=== PATIENT | female | born 1940 ===

== ENCOUNTER 2017-12-25 20:54 | Emergency (ER) | payer MEDICARE ==
[2017-12-25 22:30] VITALS: TEMP 98; O2SAT 100
[2017-12-25] MEDS ORDERED: Sodium Chloride 0.9% 1,000 ML IV STA (23:00)
--- NOTE | 2017-12-25 23:16 | ED PDOC ---
HPI: Back Time Seen by Provider: 12/25/17 22:35 Chief Complaint (Nursing): Back Pain Chief Complaint (Provider): Back Pain History Per: Patient History/Exam Limitations: no limitations Onset/Duration Of Symptoms: Hrs (x 6), Waxing/Waning, Intermittent Episodes, Sudden Onset Current Symptoms Are (Timing): Still Present Additional Complaint(s): Sania is a 77 y/o female who presents to the ED complaining of sudden onset left flank pain that started at 18:00 today. Patient describes the pain as constant, radiating to the left lower quadrant, with intermittent waxing and waning. Pain was not relieved by ibuprofen. She also admits to nausea with one episode of nonbilious, nonbloody vomit today. Patient has no hx of kidney stone. Last week she had an episode where she felt she had dysuria but it resolved spontaneously. She has chills but denies fever. PMD: Dr. South Past Medical History Reviewed: Historical Data, Nursing Documentation, Vital Signs Vital Signs: Last Vital Signs Temp 98.0 F 12/25/17 22:30 Pulse 84 12/25/17 22:30 Resp 16 12/25/17 22:30 BP 147/70 12/25/17 22:30 Pulse Ox 100 12/25/17 22:30 - Medical History PMH: No Chronic Diseases Denies: Kidney Stones - Surgical History Surgical History: Cholecystectomy - Family History Family History: States: No Known Family Hx - Social History Current smoker - smoking cessation education provided: No Alcohol: None - Home Medications Home Medications: Ambulatory Orders Medication Instructions Recorded Ciprofloxacin [Cipro] 1 tab PO BID #14 tab 12/26/17 Ibuprofen [Motrin Tab] 600 mg PO Q8 PRN #60 tab 12/26/17 Ondansetron ODT [Zofran ODT] 1 odt PO Q6 PRN #20 odt 12/26/17 Tamsulosin [Flomax] 0.4 mg PO DAILY #14 cap 12/26/17 traMADol [Ultram] 50 mg PO TID #15 tab 12/26/17 - Allergies Allergies/Adverse Reactions: Allergies Allergy/AdvReac Type Severity Reaction Status Date / Time No Known Allergies Allergy Verified 12/25/17 22:29 Review of Systems ROS Statement: Except As Marked, All Systems Reviewed And Found Negative Constitutional: Positive for: Chills. Negative for: Fever Gastrointestinal: Positive for: Nausea, Vomiting (1 episode). Negative for: Hematemesis Genitourinary Female: Positive for: Dysuria (resolved last week) Musculoskeletal: Positive for: Back Pain (left flank w/ radiation to LLQ) - Laboratory Results Result Diagrams: 12/25/17 23:27 12/25/17 23:27 - ECG O2 Sat by Pulse Oximetry: 100 (RA) Pulse Ox Interpretation: Normal Medical Decision Making Medical Decision Making: Time: 22:55 Initial Impression: Flank Pain; Dx include but not limited to: renal colic, pyelonephritis, back strain, less likely diverticulitis Initial Plan: --CT Abdomen & Pelvis --CMP --Urine Dip --CBC --Flomax --Toradol --Tylenol --Zofran --Blood Culture --Urine Culture --Urinalysis Time: 00:31 --Patient reports feeling better. CT shows 2mm kidney stone. High likelihood of passing w/o any surgical intervention --Stable for discharge home with urology followup Scribe Attestation: Documented by Ok Encarnacion, acting as a scribe for Dr. Roseline Contreras MD Provider Scribe Attestation: All medical record entries made by the Scribe were at my direction and personally dictated by me. I have reviewed the chart and agree that the record accurately reflects my personal performance of the history, physical exam, medical decision making, and the department course for this patient. I have also personally directed, reviewed, and agree with the discharge instructions and disposition. Disposition - Clinical Impression Clinical Impression: Kidney stone on left side - Patient ED Disposition Is Patient to be Admitted: No Counseled Patient/Family Regarding: Studies Performed, Diagnosis, Need For Followup - Disposition Referrals: Luis South MD [Staff Provider] - Erwin Escobar MD [Medical Doctor] - Disposition: Routine/Home Disposition Time: 00:31 Condition: IMPROVED Additional Instructions: CALL YOUR DOCTORS TOMORROW TO SETUP FOLLOW UP APPOINTMENT BY NEXT WEEK Prescriptions: Ciprofloxacin [Cipro] 1 tab PO BID #14 tab Ibuprofen [Motrin Tab] 600 mg PO Q8 PRN #60 tab PRN Reason: Pain, Moderate (4-7) Ondansetron ODT [Zofran ODT] 1 odt PO Q6 PRN #20 odt PRN Reason: Nausea/Vomiting Tamsulosin [Flomax] 0.4 mg PO DAILY #14 cap traMADol [Ultram] 50 mg PO TID #15 tab Instructions: Kidney Stones (ED) Forms: [employer] (Kyrgyz) Print Language: ARMENIAN
[2017-12-25 23:29] LABS: BASO % 0.3 % (0.0-2.0); HEMOGLOBIN 14.4 g/dL (12.0-16.0); LYMPH # 0.8 K/uL (1.0-4.3); LYMPH % 5.8 % (20.0-40.0); MEAN CELL VOLUME 87.9 fl (81.0-99.0); MEAN CORPUSCULAR HGB CONC 33.1 g/dL (33.0-37.0); MEAN PLATELET VOLUME 7.3 fl (7.2-11.7); MONO # 0.3 K/uL (0.0-0.8); MONO % 1.9 % (0.0-10.0); NEUT # 13.1 K/uL (1.8-7.0); PLATELET COUNT 222 K/uL (130-400); RBC 4.96 Mil/uL (3.80-5.20); RED CELL DISTRIBUTION WIDTH 13.8 % (11.5-14.5); WHITE BLOOD COUNT 14.2 K/uL (4.8-10.8)
[2017-12-25 23:40] LABS: ALB/GLOB RATIO 1.5 (1.0-2.1); ALBUMIN 4.6 g/dL (3.5-5.0); ALT/SGPT 38 U/L (9-52); AST/SGOT 28 U/L (14-36); BLOOD UREA NITROGEN 16 mg/dl (7-17); CALCIUM 9.6 mg/dL (8.4-10.2); GFR AFRICAN-AMERICAN > 60; GFR NON-AFRICAN AMERICAN > 60
--- NOTE | 2017-12-26 00:28 | CT ---
EXAM: CT Abdomen and Pelvis Without Intravenous Contrast CLINICAL HISTORY: 77 years old, female; Pain; Abdominal pain; Flank; Left; Prior surgery; Surgery date: 6+ months; Surgery type: Gall bladder; Additional info: Left flank pain TECHNIQUE: Axial computed tomography images of the abdomen and pelvis without intravenous contrast. All CT scans at this facility use one or more dose reduction techniques, viz.: automated exposure control; ma/kV adjustment per patient size (including targeted exams where dose is matched to indication; i.e. head); or iterative reconstruction technique. Coronal and sagittal reformatted images were created and reviewed. COMPARISON: No relevant prior studies available. FINDINGS: Limitations: Motion artifact - mild. Lower thorax: Mild atelectasis/scarring. RIGHT middle lobe calcified granuloma. Elevated RIGHT hemidiaphragm. Small hiatal hernia. ABDOMEN: Liver: Unremarkable. Gallbladder and bile ducts: Cholecystectomy. No significant ductal dilation. Pancreas: Unremarkable. No ductal dilation. Spleen: No splenomegaly. Adrenals: No mass. Kidneys and ureters: No renal calculi. Mild pelvocaliectasis of LEFT kidney. Mildly dilated LEFT proximal ureter. 0.2 x 0.2 x 0.2 cm calculus within LEFT mid ureter. Stomach and bowel: Scattered diverticula within colon. No associated inflammatory stranding. No definite mural thickening. No obstruction. Appendix: Normal caliber. No inflammation. PELVIS: Bladder: Unremarkable. No stones. Reproductive: Unremarkable as visualized. ABDOMEN and PELVIS: Intraperitoneal space: No significant fluid collection. No free air. Bones/joints: Early degenerative changes of spine. Probable bone islands. No acute fracture. Soft tissues: Unremarkable. Vasculature: Minimal atherosclerotic disease. No aneurysm. Lymph nodes: No pathologically enlarged lymph nodes. IMPRESSION: 1. LEFT mid ureteral calculus with mild hydroureteronephrosis. 2. Incidental/non-acute findings are described above.
[2017-12-26 00:40] LABS: SQUAMOUS EPITHIAL < 1 /hpf (0-5); URINE BILIRUBIN NEGATIVE (NEGATIVE); URINE BLOOD MODERATE (NEGATIVE); URINE CLARITY CLEAR (Clear); URINE COLOR STRAW (YELLOW); URINE GLUCOSE (UA) 50 mg/dL (Normal); URINE LEUKOCYTE ESTERASE NEG Leu/uL (Negative); URINE NITRATE NEGATIVE (NEGATIVE); URINE PROTEIN NEGATIVE (NEGATIVE); URINE UROBILINOGEN 0.2-1.0 mg/dL (0.2-1.0)
[2017-12-26 01:15] VITALS: BP 135/77; PULSE 97; RESP 18
[2017-12-26 01:56] LABS: BANDS 5 % (0-2); LYMPHOCYTE 6 % (20-50); MONOCYTE 1 % (0-10); NEUTROPHIL 88 % (42-75); PLATELET ESTIMATE NORMAL (NORMAL); TOTAL CELLS COUNTED 100
== END 2017-12-26 01:19 | disposition home or self-care (01) ==
LOC: H.ER 20:54
DX: N13.2 Hydronephrosis with renal and ureteral calculous obstruction (principal)
CPT/HCPCS: 74176; 80053; 81003; 85025; 87040; 87086; 96361; 96374; 96375; 99282; J1885; J2405; J7040